=== PATIENT | female | born 1975 | race Caucasian/White ===

== ENCOUNTER 2017-03-08 15:55 | Emergency (ER) | payer MEDICAID ==
[~2017-03-08] VITALS: Wt 52.0 kg
[~2017-03-08 15:55] MED LIST: AMO500 PO; PRED50TA PO
[2017-03-08] MEDS ORDERED: LORA-441 PO (16:55)
[2017-03-08] MEDS ORDERED: LORAZEPAM 0.5 MG TAB PO ONE (17:00)
--- NOTE | 2017-03-08 19:03 | ERA ---
ER Documentation Chief Complaint Date/Time DATE: 03/08/17 Chief Complaint Anxiety HPI The patient is a 41-year-old female, presenting to the ER because of acute anxiety. He is unable to see a psychiatrist until 2 days from now. He denies suicidal, homicidal ideation, requesting for Ativan. He denies headache, neck pain, chest pain, abdominal pain, vomiting, diarrhea. She is smokes and drinks and does marijuana Past medical history: Anxiety, asthma, insomnia Past surgical history: None ROS All systems reviewed and are negative except as per history of present illness. Medications Home Meds Active Scripts Lorazepam* (Ativan*) 0.5 Mg Tablet, 0.5 MG PO Q12, #6 TAB Prov:JASON GORDON MD 03/08/17 Prednisone* (Prednisone*) 50 Mg Tablet, 50 MG PO DAILY, #5 TAB Prov:RIVAS DALLAS PA-C 06/26/15 Amoxicillin* (Amoxicillin*) 500 Mg Cap, 500 MG PO BID for 7 Days, CAP Prov:RIVAS DALLAS PA-C 06/26/15 Allergies Allergies: Coded Allergies: No Known Allergy (Unverified , 06/26/15) PMhx/Soc Medical and Surgical Hx: pt denies Medical Hx, pt denies Surgical Hx History of Surgery: No Anesthesia Reaction: No Hx Neurological Disorder: No Hx Respiratory Disorders: No Hx Psychiatric Problems: Yes (anxiety) Hx Miscellaneous Medical Probl: No Hx Alcohol Use: No Hx Substance Use: No Hx Tobacco Use: No Physical Exam Vitals Vital Signs Date Time Temp Pulse Resp B/P Pulse Ox O2 Delivery O2 Flow Rate FiO2 03/08/17 15:59 98.8 99 20 155/90 99 Physical Exam Const: No acute distress. Very anxious Head: Atraumatic. Eyes: Normal Conjunctiva. ENT: Normal External Ears, Nose and Mouth. Neck: Full range of motion. No meningismus. Resp: Clear to auscultation bilaterally. Cardio: Regular rate and rhythm. Abd: Soft, non distended, normal bowel sounds, non tender. Skin: No petechiae or rashes. Back: No midline or flank tenderness. Ext: No cyanosis, or edema. Neur: Awake and alert. No focal deficit Psych: Normal Mood and Affect. Results 24 hrs Current Medications Medications (Trade) Dose Ordered Sig/Carlo Route PRN Reason Start Time Stop Time Status Last Admin Dose Admin Lorazepam (Ativan) 0.5 mg ONCE ONCE PO 03/08/17 17:00 03/08/17 17:01 DC 03/08/17 17:19 Procedures/MDM MEDICAL MAKING DECISION: The patient is a 41-year-old female, presenting with acute anxiety attack. She was treated with Ativan 0.5 mg p.o. with good response. The differential diagnoses considered include but are not limited to anxiety attack, panic attack, decompensated psychiatric illness Departure Diagnosis: Primary Impression: Anxiety Condition: Good Additional Instructions: Call your psychiatrist TOMORROW for an appointment during the next 1-2 days.See the doctor sooner or return here if your condition worsens before your appointment time. She was discharged with 6 tablets of Ativan 0.5 mg The patient's blood pressure was elevated (>120/80) but appears stable without evidence of hypertension emergency or urgency. The patient was counseled about the risks of hypertension and urged to pursue outpatient monitoring and therapy within a week with their primary care physician. JASON GORDON MD Mar 08, 2017 19:03
== END 2017-03-08 17:23 | disposition home or self-care (01) ==
LOC: FTE 15:55
DX: F41.9 Anxiety disorder, unspecified (principal)
CPT/HCPCS: Z7502; Z7610; 99283